=== PATIENT | female | born 1965 | race Asian ===

== ENCOUNTER 2019-02-24 12:56 | Emergency (ER) | payer OTHER, SELFPAY ==
[2019-02-24 13:16] VITALS: BP 133/86; PULSE 119; RESP 36; TEMP 36.9; O2SAT 99; BMI 27.1
[2019-02-24] MEDS: ALBUTEROL/IPRATROPIUM 3 ML AMPUL INH (13:25)
[2019-02-24 13:26] VITALS: PULSE 110; RESP 24
--- NOTE | 2019-02-24 13:36 | DI.RAD.S_ITS ---
PROCEDURE: XR CHEST 1V INDICATIONS: cough, wheeze TECHNIQUE: One view of the chest was acquired. COMPARISON: None. FINDINGS: Surgical changes and devices: None. Lungs and pleura: Lungs are clear. No pleural effusions or pneumothorax. Mediastinum: Mediastinal contours appear normal. Heart size is normal. Bones and chest wall: No suspicious bony lesions. Overlying soft tissues appear unremarkable. IMPRESSION: Negative chest. No acute cardiopulmonary process is evident. Dictated by: Mich Joseph M.D. on 02/24/2019 at 14:03 Approved by: Mich Joseph M.D. on 02/24/2019 at 14:04
[2019-02-24] MEDS: KETOROLAC 60 MG/2 ML VIAL 15 MG IV (13:42)
[2019-02-24] MEDS: SODIUM CHLORIDE 0.9% 1,000 ML 1000 ML IV (13:44)
[2019-02-24 13:48] LABS: Add Manual Diff / Slide Review NO; Basophils Absolute Auto 0 /uL (0-100); Basophils Percent Auto 0.6 % (0-2); Eosinophils Absolute Auto 100 /uL (0-450); Eosinophils Percent Auto 1.8 % (2-4); Hematocrit 36.6 % (36-46); Hemoglobin 12.3 g/dL (12.0-16.0); Lymphocytes Absolute Auto 1100 /uL (1100-4500); Lymphocytes Percent Auto 20.9 % (25-40); Mean Corpuscular HGB Conc 33.5 % (30-36); Mean Corpuscular Hemoglobin 30.8 PG (26-34); Monocytes Absolute Auto 200 /uL (0-900); Monocytes Percent Auto 4.4 % (3-14); Neutrophils Absolute Auto 3900 /uL (1500-7000); Neutrophils Percent Auto 72.3 % (50-75); Platelet Count 249 X10^3/uL (150-400); Red Blood Cell Count 3.98 X10^6/uL (4.0-5.2); Red Cell Distribution Width 14.5 % (11.6-14.8); White Blood Cell Count 5.4 X10^3/uL (4.5-11.0)
[2019-02-24 14:00] VITALS: BP 119/73
[2019-02-24 14:02] LABS: Blood Urea Nitrogen 9 mg/dL (7-17); Calcium 9.3 mg/dL (8.4-10.2); Carbon Dioxide 21 mmol/L (22-32); Chloride 104 mmol/L (98-107); Estimated Glomerular Filt Rate > 60.0 mL/min (>60); Ethanol (ETOH) 78 mg/dL; Glucose 366 mg/dL (70-100); HEMOLYSIS 41 (0-50); Potassium 3.6 mmol/L (3.4-5.1); Sodium 142 mmol/L (137-145)
--- NOTE | 2019-02-24 14:51 | ED.ASTHMA ---
HPI - Asthma General Chief Complaint: Asthma Stated Complaint: shortness of breath Time Seen by Provider: 02/24/19 12:57 Source: patient and EMS Mode of arrival: EMS Limitations: no limitations History of Present Illness HPI Narrative: 53F nonsmoker with history of asthma presents by EMS for evaluation of shortness of breath. Patient had been seen and evaluated by the primary care provider earlier this morning and that head difficulty in breathing that seemed to maybe resolved with bronchodilators. The patient smelled of alcohol and has a history alcohol abuse, poorly controlled diabetes and social troubles at home that make her depressed and occasionally she makes comments and suggestion of thoughts of suicide. For reasons noted above the primary care provider thought it was most appropriate that the patient be seen and evaluated in the emergency department and wrote a letter to EMS stating that she needs to go against her will. On arrival here the patient is alert and oriented, speaking clearly with full capacity. She denies any suicidal or homicidal ideations. MD complaint: asthma attack Onset (ago): hour(s) Severity: moderate Context: none known Associated symptoms: none Treatments Prior to Arrival: inhaled bronchodilator Related Data Current Asthma Therapy: inhaled bronchodilator Home Medications Medication Instructions Recorded Confirmed ustekinumab [Stelara] #0 05/19/17 Previous Rx's Medication Instructions Recorded clobetasol 1 lauren TOPICAL BID #60 gm 08/13/16 esomeprazole magnesium [Nexium] 40 mg PO QDAY #90 cap 09/17/16 lisinopril 20 mg PO QAM #90 tab 09/17/16 loperamide 2 mg PO Q4HP PRN #60 cap 09/17/16 hydroxyzine pamoate [Vistaril] 25 - 50 mg PO Q6HP PRN #90 cap 11/05/16 nicotine (polacrilex) 2 mg PO PRN PRN #30 gum 01/09/17 atorvastatin [Lipitor] 20 mg PO HS #30 tab 01/31/17 clonidine HCl 0.1 mg PO BID #60 tab 04/01/17 insulin glargine [Lantus U-100 65 unit SQ QDAY #2 box 04/10/17 Insulin] metformin [Glucophage] 1,000 mg PO BID #180 tab 04/10/17 promethazine 12.5 mg PO Q6HP PRN #15 tab 07/22/17 zolpidem 5 mg PO HS PRN #90 tab 10/09/17 gabapentin [Neurontin] 300 mg PO TID #90 cap 11/25/17 venlafaxine 50 mg PO BID #60 tab 11/25/17 albuterol sulfate [Ventolin HFA] 1 - 2 puff INH Q4HP PRN #1 ea 10/16/18 albuterol sulfate 2 puff INHALATION Q4H PRN #1 each 02/24/19 ketorolac 10 mg PO Q6H PRN #14 tab 02/24/19 Allergies Allergy/AdvReac Type Severity Reaction Status Date / Time bupropion [From WELLBUTRIN] Allergy Unknown Verified 02/24/19 13:16 fluoxetine [FLUOXETINE] Allergy Unknown Verified 02/24/19 13:16 rosiglitazone Allergy Unknown Verified 02/24/19 13:24 tramadol [TRAMADOL] Allergy Unknown Verified 02/24/19 13:16 Review of Systems Constitutional Denies chills, Denies fever(s), Denies lethargy and Denies weakness Eyes Denies change in vision, Denies eye discharge, Denies irritation and Denies loss of vision ENT Ears, Nose, Mouth, and Throat: Denies change in voice, Denies neck pain and Denies sore throat Cardiovascular Denies chest pain, Denies irregular heart rhythm, Denies lightheadedness, Denies palpitations, Reports dyspnea, Denies dyspnea on exertion and Denies orthopnea Respiratory Reports cough, Reports dyspnea, Denies dyspnea on exertion and Reports wheezing Gastrointestinal Gastrointestinal: Denies abdominal pain, Denies change in bowel habits, Denies diarrhea, Denies nausea and Denies vomiting Genitourinary Denies hematuria, Denies flank pain, Denies urinary incontinence and Denies urinary urgency Musculoskeletal Denies neck pain Integumentary/Breasts Denies pruritus, Denies erythema, Denies rash and Denies wounds Neurologic Denies confusion, Denies loss of vision and Denies weakness Psychiatric Denies anxiety, Denies confusion, Denies depression, Denies homicidal ideation and Denies suicidal ideation Endocrine Denies palpitations Hematologic/Lymphatic Denies easy bruising Allergic/Immunologic Reports wheezing Exam Narrative Exam Narrative: GENERAL: 53-year-old female tearful, obviously anxious and a bit upset HEAD: Atraumatic. Normocephalic. No temporal or scalp tenderness. EYES: Pupils equal round and reactive. Extraocular motions intact. No scleral icterus. No injection or drainage. ENT: Nose without bleeding, purulent drainage or septal hematoma. Throat without erythema, tonsillar hypertrophy or exudate. Uvula midline. Airway patent. NECK: Trachea midline. No JVD or lymphadenopathy. Supple, nontender, no meningeal signs. CARDIOVASCULAR: Regular rate and rhythm without murmurs, gallops, or rubs. RESPIRATORY: Shallow breathing, poor inspiratory effort with prolonged expiratory phase and expiratory wheeze in all lynn GASTROINTESTINAL: Abdomen soft, non-tender, nondistended. No hepato-splenomegaly, or palpable masses. No guarding. EXTREMITIES: No clubbing, cyanosis, or edema. No joint tenderness, effusion, or edema noted. BACK: Nontender without deformity or crepitance. No flank tenderness. NEURO: AOx3. SKIN: No rash or erythema. Initial Vital Signs Initial Vital Signs: Vital Signs Temperature 98.4 F 02/24/19 13:16 Pulse Rate 119 H 02/24/19 13:16 Respiratory Rate 36 H 02/24/19 13:16 Blood Pressure 133/86 02/24/19 13:16 Pulse Oximetry 99 02/24/19 13:16 [facility] Family History (Updated 08/13/16 @ 00:00 by Valeria Ray MD) Grandfather [place] (myocardial infarction) Social History Smoking Status: Current every day smoker Family History Grandfather [place] (myocardial infarction) Social History Smoking Status: Current every day smoker Course Orders Ordered: ED Orders 02/24/19 13:30 Basic Metabolic Panel Stat Complete Blood Count AUTO DIFF Stat Ethanol (ETOH) Stat 02/24/19 13:36 XR chest 1V Stat Discontinued Medications Albuterol/Ipratropium (Duoneb) 3 ml INH NOW ONE Stop: 02/24/19 13:23 Last Admin: 02/24/19 13:25 Dose: 3 ml Sodium Chloride (Normal Saline 0.9%) 1,000 mls @ 1,000 mls/hr IV BOLUS ONE Stop: 02/24/19 14:34 Last Infusion: 02/24/19 14:55 Dose: 0 mls/hr Admin: 02/24/19 13:44 Dose: 1,000 mls/hr Ketorolac Tromethamine (Toradol) 15 mg IV NOW ONE Stop: 02/24/19 13:36 Last Admin: 02/24/19 13:42 Dose: 15 mg Reevaluation(s) Reevaluation #1: Patient shows tremendous improvement after above-stated bronchodilators and fluids. She is ambulating through the department no longer tearful. She speaks clearly with a steady gait. She denies any suicidal or homicidal ideation Vital Signs - 8 hr 02/24/19 13:16 02/24/19 13:26 02/24/19 14:00 Temperature 98.4 F Pulse Rate 119 H 110 H Respiratory Rate 36 H 24 Blood Pressure 133/86 Blood Pressure [Left Arm] 119/73 Pulse Oximetry 99 02/24/19 15:12 Temperature Pulse Rate 75 Respiratory Rate 17 Blood Pressure 117/86 Blood Pressure [Left Arm] Pulse Oximetry 96 MDM - Asthma Lab Data Result diagrams: 02/24/19 13:30 02/24/19 13:30 Lab Results 02/24/19 02/24/19 Range/Units 13:30 13:30 WBC 5.4 (4.5-11.0) X10^3/uL RBC 3.98 L (4.0-5.2) X10^6/uL Hgb 12.3 (12.0-16.0) g/dL Hct 36.6 (36-46) % MCV 92.0 (80-100) fL MCH 30.8 (26-34) PG MCHC 33.5 (30-36) % RDW 14.5 (11.6-14.8) % Plt Count 249 (150-400) X10^3/uL Neut % (Auto) 72.3 (50-75) % Lymph % (Auto) 20.9 L (25-40) % Whiteside % (Auto) 4.4 (3-14) % Eos % (Auto) 1.8 L (2-4) % Baso % (Auto) 0.6 (0-2) % Neut # (Auto) 3900 (9022-9169) /uL Lymph # (Auto) 1100 (3979-1417) /uL Whiteside # (Auto) 200 (0-900) /uL Eos # (Auto) 100 (0-450) /uL Baso # (Auto) 0 (0-100) /uL Sodium 142 (137-145) mmol/L Potassium 3.6 (3.4-5.1) mmol/L Chloride 104 (98-107) mmol/L Carbon Dioxide 21 L (22-32) mmol/L BUN 9 (7-17) mg/dL Creatinine 0.60 (0.52-1.04) mg/dL Estimated GFR > 60.0 (>60) mL/min BUN/Creatinine Ratio 15.0 (6-22) Glucose 366 H (70-100) mg/dL Calcium 9.3 (8.4-10.2) mg/dL Ethyl Alcohol 78 mg/dL Imaging Data Chest x-ray: Radiologist's impression: [address] [address] XRay Report Signed Patient: Ladonna Garcia#: [id number] : 1965Acct:[id number] Age/Sex: 53 / FDate of Service: 02/24/19 Loc: ED Accession Number: [id number] Procedure: XR chest 1V Ordering Provider: Raffi Campbell D.O. PROCEDURE: XR CHEST 1V INDICATIONS: cough, wheeze TECHNIQUE: One view of the chest was acquired. COMPARISON: None. FINDINGS: Surgical changes and devices: None. Lungs and pleura: Lungs are clear. No pleural effusions or pneumothorax. Mediastinum: Mediastinal contours appear normal. Heart size is normal. Bones and chest wall: No suspicious bony lesions. Overlying soft tissues appear unremarkable. IMPRESSION: Negative chest. No acute cardiopulmonary process is evident. Dictated by: Mich Joseph M.D. on 02/24/2019 at 14:03 Approved by: Mich Joseph M.D. on 02/24/2019 at 14:04 Discharge Plan Departure Patient Disposition: Home Clinical Impression: Asthma Qualifiers: Asthma severity: mild Asthma persistence: intermittent Asthma complication type: with acute exacerbation Qualified Code(s): J45.21 - Mild intermittent asthma with (acute) exacerbation Discharge Date/Time: 02/24/19 15:13 Interventions: ED Discharge Assessment Last Done: 02/24/19 15:12 Instructions: DI for Asthma -- Adult Activity Restrictions/Additional Instructions: *You have been diagnosed with [ asthma exacerbation ] *What to do: *Take medications as directed *Follow up with your primary care provider in 2-3 days, call for an appointment. Let them know you were seen in the Emergency Department and that we ask that you be seen in follow up *Return to ER if you should have any new, worsening or concerning symptoms Prescriptions: New albuterol sulfate 90 mcg/actuation aerosol powdr breath activated 2 puff INHALATION Q4H PRN (Reason: shortness of breath or wheezing) Qty: 1 RF: 0 ketorolac 10 mg tablet 10 mg PO Q6H PRN (Reason: pain) Qty: 14 RF: 0 No Action clobetasol 0.05 % ointment 1 lauren Topical BID Qty: 60 RF: 1 lisinopril 20 MG tablet 20 mg PO QAM Qty: 90 RF: 2 esomeprazole magnesium [Nexium] 40 MG capsule,delayed release(DR/EC) 40 mg PO QDAY Qty: 90 RF: 2 loperamide 2 MG capsule 2 mg PO Q4HP PRNQty: 60 RF: 0 hydroxyzine pamoate [Vistaril] 25 MG capsule 25 - 50 mg PO Q6HP PRNQty: 90 RF: 1 nicotine (polacrilex) 2 MG gum 2 mg PO PRN PRNQty: 30 RF: 2 atorvastatin [Lipitor] 20 MG tablet 20 mg PO HS Qty: 30 RF: 2 clonidine HCl 0.1 MG tablet 0.1 mg PO BID Qty: 60 RF: 1 metformin [Glucophage] 500 MG tablet 1,000 mg PO BID Qty: 180 RF: 0 insulin glargine [Lantus U-100 Insulin] 100 UNIT/1 ML solution 65 unit SQ QDAY Qty: 2 RF: 3 ustekinumab [Stelara] 45 MG/0.5 ML solution Qty: 0 RF: 0 promethazine 12.5 MG tablet 12.5 mg PO Q6HP PRNQty: 15 RF: 0 zolpidem 5 MG tablet 5 mg PO HS PRNQty: 90 RF: 0 venlafaxine 50 MG tablet 50 mg PO BID Qty: 60 RF: 0 gabapentin [Neurontin] 300 MG capsule 300 mg PO TID Qty: 90 RF: 0 Ventolin HFA 90 mcg/actuation HFA aerosol inhaler 1 - 2 puff INH Q4HP PRNQty: 1 RF: 0 Referrals: Valeria Ray MD [Primary Care Provider] -
[2019-02-24 15:12] VITALS: BP 117/86; PULSE 75; RESP 17; O2SAT 96
== END 2019-02-24 15:13 | disposition home or self-care (01) ==
PROVIDERS: Emergency Provider Emergency Medicine; Family Provider Family Medicine; PCP Family Medicine
DX: J45.21 Mild intermittent asthma with (acute) exacerbation (principal)
CPT/HCPCS: 36591; 71045; 80048; 80320; 85025; 94640; 96361; 96374; 99283; 99284; J1885

== ENCOUNTER → 2020-12-30 12:16 | Outpatient (CLI) | payer OTHER, SELFPAY ==
[2020-12-30] MEDS: COVID-19 VACC #1, MRNA(MOD) 100 MCG/0.5 ML VIAL IM (12:28)
== END ==
PROVIDERS: Family Provider Family Medicine; Visit Provider Internal Medicine
DX: Z23 Encounter for immunization (principal)
CPT/HCPCS: 0011A; 91301

== ENCOUNTER → 2021-01-27 10:07 | Outpatient (CLI) | payer OTHER, SELFPAY ==
[2021-01-27] MEDS: COVID-19 VACC #2, MRNA(MOD) 100 MCG/0.5 ML VIAL IM (10:15)
== END ==
PROVIDERS: Family Provider Family Medicine; Visit Provider Internal Medicine
DX: Z23 Encounter for immunization (principal)
CPT/HCPCS: 0012A; 91301

== ENCOUNTER 2022-06-27 16:56 | Emergency (ER) | payer OTHER, SELFPAY ==
[2022-06-27] VITALS (7 sets, daily range): BP systolic 142–192; BP diastolic 73–88; PULSE 91–108; RESP 18; TEMP 36.6; O2SAT 99–100; BMI 31.5
--- NOTE | 2022-06-27 18:43 | ED_ITS ---
HPI - Extremity Problem <Jackie Chuy Mendoza FLOOR COVERING PRINTER - Last Filed: 06/27/22 20:10> General Chief complaint: Extremity Problem,Nontraumatic Stated complaint: Osteoarthritis in hip/groin, Pain Time Seen by Provider: 06/27/22 18:38 Mode of arrival: Family Vehicle History of Present Illness HPI Narrative: This is a 56-year-old female with history of diabetes type 2, psoriasis, and hypertension who presents to the emergency department complaining of groin pain on the right side which has been worsening over the last few days. She states that she went to the hospital in [place] had an x-ray of her right hip because this is where it is painful, was told that she has osteoarthritis and was discharged home. She states that her pain has been ongoing, she denies any recent trauma, denies any low back pain, denies recent fever or chills but states that she had COVID 1 month ago. States that she has tested negative since then and does not have any ongoing respiratory symptoms. She denies any recent illness, abdominal pain, dysuria or urinary frequency. States that her pain is sharp and dull, she denies any numbness or tingling, states the pain is shooting in nature from the lateral hip to the medial groin of her right upper leg. She has been taking meloxicam, Vicodin without improvement. She is insulin dependent and also on metformin. Related Data Home Medications Medication Instructions Recorded Confirmed ustekinumab 45 mg/0.5 mL ##0 05/19/17 subcutaneous solution (Stelara) Previous Rx's Medication Instructions Recorded clobetasol 0.05 % topical ointment 1 lauren topical BID ##60 08/13/16 esomeprazole magnesium 40 mg 40 mg PO QDAY #90 caps 09/17/16 capsule,delayed release (Nexium) lisinopril 20 mg tablet 20 mg PO QAM #90 tabs 09/17/16 loperamide 2 mg capsule 2 mg PO Q4HP PRN #60 caps 09/17/16 hydroxyzine pamoate 25 mg capsule 25 - 50 mg PO Q6HP PRN #90 caps 11/05/16 (Vistaril) nicotine (polacrilex) 2 mg gum 2 mg PO PRN PRN ##30 01/09/17 atorvastatin 20 mg tablet (Lipitor) 20 mg PO HS #30 tabs 01/31/17 clonidine HCl 0.1 mg tablet 0.1 mg PO BID #60 tabs 04/01/17 insulin glargine 100 unit/mL 65 unit (0.65 mL) SQ QDAY ##2 04/10/17 subcutaneous solution (Lantus U-100 Insulin) metformin 500 mg tablet 1,000 mg PO BID #180 tabs 04/10/17 (Glucophage) promethazine 12.5 mg tablet 12.5 mg PO Q6HP PRN #15 tabs 07/22/17 zolpidem 5 mg tablet 5 mg PO HS PRN #90 tabs 10/09/17 gabapentin 300 mg capsule 300 mg PO TID #90 caps 11/25/17 (Neurontin) venlafaxine 50 mg tablet 50 mg PO BID #60 tabs 11/25/17 albuterol sulfate 90 mcg/actuation 1 - 2 puff INH Q4HP PRN #1 ea 10/16/18 aerosol inhaler (Ventolin HFA) albuterol sulfate 90 mcg/actuation 2 puff inhalation Q4H PRN 02/24/19 breath activated powder inhaler shortness of breath or wheezing #1 ea ketorolac 10 mg tablet 10 mg PO Q6H PRN pain #14 tabs 02/24/19 hydrocodone 5 mg-acetaminophen 325 1 tab PO BID PRN pain #14 tabs 06/27/22 mg tablet ketorolac 10 mg tablet 10 mg PO TID PRN pain 5 days #14 06/27/22 tabs lidocaine 5 % topical patch 1 patch topical DAILY PRN pain #15 06/27/22 (Lidoderm) ea methocarbamol 500 mg tablet 500 mg PO TID PRN as needed for 06/27/22 muscle spasm #20 tabs prednisone 20 mg tablet 40 mg PO DAILY 5 days #10 tabs 06/27/22 Allergies Allergy/AdvReac Type Severity Reaction Status Date / Time bupropion [From WELLBUTRIN] Allergy Unknown Verified 06/27/22 17:17 fluoxetine [FLUOXETINE] Allergy Unknown Verified 06/27/22 17:17 rosiglitazone Allergy Unknown Verified 06/27/22 17:17 tramadol [TRAMADOL] Allergy Unknown Verified 06/27/22 17:17 Review of Systems <FRANCISCO Nguyen - Last Filed: 06/27/22 20:10> Review of Systems Narrative: Review of systems is negative for acute abnormalities unless otherwise noted in HPI Patient History <FRANCISCO Nguyen - Last Filed: 06/27/22 20:10> Family History Grandfather [place] (myocardial infarction) Social History Smoking Status: Former smoker Smoking Status: Former smoker alcohol intake frequency: other Substance Use Type: does not use Exam <FRANCISCO Nguyen - Last Filed: 06/27/22 20:10> Narrative Exam Narrative: Reviewed vitals signs and nursing notes. General: cooperative, comfortable, in no acute distress, well groomed HEENT: symmetrical facial expressions, moist mucous membranes Cardiovascular: regular rate and rhythm, no peripheral edema, warm extremities Respiratory: normal effort, able to speak in complete sentences, without whee zing, stridor, or abnormal breath sounds. No retractions or tachypnea. GI: abdomen soft, nontender to palpation, nondistended, without masses, rebound tenderness or exquisite tenderness with exam. MSK: moves all extremities, neurovascularly intact, no weakness, normal tone, no right hip pain with axial load, external rotation is nontender, left leg lift elicits some low back pain, right leg lift does not elicit low back pain, without sensation changes, able to flex and extend right hip, knee without deficit or severe pain. Skin: brisk capillary refill, without pallor or erythema Neuro: normal speech and cognition, A&O x3, ambulatory, clear speech Psych: mental status is grossly normal, congruent mood, normal affect, pleasant and cooperative Initial Vital Signs Initial Vital Signs: Vital Signs Temperature 98 F 06/27/22 17:13 Pulse Rate 108 H 06/27/22 17:13 Respiratory Rate 18 06/27/22 17:13 Blood Pressure 190/88 H 06/27/22 17:13 Pulse Oximetry 100 06/27/22 17:13 Oxygen Delivery Method 06/27/22 17:13 <Rikki Adams MD - Last Filed: 06/27/22 22:26> Initial Vital Signs Initial Vital Signs: Vital Signs Temperature 98 F 06/27/22 17:13 Pulse Rate 108 H 10/19/22 17:13 Respiratory Rate 18 06/27/22 17:13 Blood Pressure 190/88 H 06/27/22 17:13 Pulse Oximetry 100 06/27/22 17:13 Oxygen Delivery Method 06/27/22 17:13 Course <FRANCISCO Nguyen - Last Filed: 06/27/22 20:10> Orders Ordered: ED Orders 06/27/22 18:53 XR lumbar spine 2-3V Stat 06/27/22 20:06 UA Complete [Urinalysis and Microscopic] Stat Discontinued Medications Hydrocodone Bitart/Acetaminophen (Hydrocodone/Acet 5/325 Tablet) 1 tab PO NOW ONE Stop: 06/27/22 18:54 Last Admin: 06/27/22 19:33 Dose: 1 tab Documented By: SHAMIKA Hydrocodone Bitart/Acetaminophen (Hydrocodone/Acet 5/325 Prepack) 1 bottle MISC SEEINSTR ONE Stop: 06/27/22 20:09 Last Admin: 06/27/22 20:23 Dose: 1 bottle Documented By: SHAMIKA Ketorolac Tromethamine (Ketorolac 30 Mg/Ml Vial) 15 mg IM NOW ONE Stop: 06/27/22 18:54 Last Admin: 06/27/22 19:32 Dose: 15 mg Documented By: SHAMIKA Lidocaine (Lidocaine Patch 1 Each Adh..Patch) 1 each TOP NOW ONE Stop: 06/27/22 18:54 Last Admin: 06/27/22 19:33 Dose: 1 each Documented By: SHAMIKA Methocarbamol (Methocarbamol 500 Mg Tablet) 500 mg PO NOW ONE Stop: 06/27/22 18:54 Last Admin: 06/27/22 19:32 Dose: 500 mg Documented By: SHAMIKA Prednisone (Prednisone 20 Mg Tablet) 40 mg PO NOW ONE Stop: 06/27/22 19:17 Last Admin: 06/27/22 19:31 Dose: 40 mg Documented By: SHAMIKA Vital Signs Vital signs: Vital Signs - 8 hr 06/27/22 17:13 06/27/22 18:24 06/27/22 18:25 Temperature 98 F Pulse Rate 108 H 102 H 103 H Respiratory Rate 18 Blood Pressure 190/88 H Pulse Oximetry 100 99 100 Oxygen Delivery Method Room Air 06/27/22 18:25 06/27/22 18:36 06/27/22 18:38 Temperature Pulse Rate 101 H Respiratory Rate Blood Pressure 192/87 H 142/73 H Pulse Oximetry 100 Oxygen Delivery Method 06/27/22 18:38 06/27/22 19:06 06/27/22 19:26 Temperature Pulse Rate 99 H 101 H 91 H Respiratory Rate Blood Pressure Pulse Oximetry 100 99 100 Oxygen Delivery Method 06/27/22 19:26 Temperature Pulse Rate Respiratory Rate Blood Pressure 172/81 H Pulse Oximetry Oxygen Delivery Method <Rikki Adams MD - Last Filed: 06/27/22 22:26> Orders Ordered: ED Orders 06/27/22 18:53 XR lumbar spine 2-3V Stat 06/27/22 20:06 UA Complete [Urinalysis and Microscopic] Stat Discontinued Medications Hydrocodone Bitart/Acetaminophen (Hydrocodone/Acet 5/325 Tablet) 1 tab PO NOW ONE Stop: 06/27/22 18:54 Last Admin: 06/27/22 19:33 Dose: 1 tab Documented By: SHAMIKA Hydrocodone Bitart/Acetaminophen (Hydrocodone/Acet 5/325 Prepack) 1 bottle MISC SEEINSTR ONE Stop: 06/27/22 20:09 Last Admin: 06/27/22 20:23 Dose: 1 bottle Documented By: SHAMIKA Ketorolac Tromethamine (Ketorolac 30 Mg/Ml Vial) 15 mg IM NOW ONE Stop: 06/27/22 18:54 Last Admin: 06/27/22 19:32 Dose: 15 mg Documented By: SHAMIKA Lidocaine (Lidocaine Patch 1 Each Adh..Patch) 1 each TOP NOW ONE Stop: 06/27/22 18:54 Last Admin: 06/27/22 19:33 Dose: 1 each Documented By: SHAMIKA Methocarbamol (Methocarbamol 500 Mg Tablet) 500 mg PO NOW ONE Stop: 06/27/22 18:54 Last Admin: 06/27/22 19:32 Dose: 500 mg Documented By: SHAMIKA Prednisone (Prednisone 20 Mg Tablet) 40 mg PO NOW ONE Stop: 06/27/22 19:17 Last Admin: 06/27/22 19:31 Dose: 40 mg Documented By: SHAMIKA Vital Signs Vital signs: Vital Signs - 8 hr 06/27/22 17:13 06/27/22 18:24 06/27/22 18:25 Temperature 98 F Pulse Rate 108 H 102 H 103 H Respiratory Rate 18 Blood Pressure 190/88 H Pulse Oximetry 100 99 100 Oxygen Delivery Method Room Air 06/27/22 18:25 06/27/22 18:36 06/27/22 18:38 Temperature Pulse Rate 101 H Respiratory Rate Blood Pressure 192/87 H 142/73 H Pulse Oximetry 100 Oxygen Delivery Method 06/27/22 18:38 06/27/22 19:06 06/27/22 19:26 Temperature Pulse Rate 99 H 101 H 91 H Respiratory Rate Blood Pressure Pulse Oximetry 100 99 100 Oxygen Delivery Method 06/27/22 19:26 Temperature Pulse Rate Respiratory Rate Blood Pressure 172/81 H Pulse Oximetry Oxygen Delivery Method MDM - Extremity (Nontraumatic) <Jackie Mendoza, [facility] - Last Filed: 06/27/22 20:10> Lab Data Labs: Lab Results 06/27/22 Range/Units 20:06 Urine Color Yellow Urine Appearance Clear Urine pH 6.5 (4.5-8.0) Ur Specific Ronks <=1.005 (1.000-1.035) Urine Protein Trace H (Negative) Urine Glucose (UA) 1+ H (Negative) g/dL Urine Ketones Negative (NEGATIVE) Urine Occult Blood Trace-intact (Negative) Urine Nitrate Negative (Negative) Urine Bilirubin Negative (NEGATIVE) Urine Urobilinogen 0.2 (0.2) E.U./dL Ur Leukocyte Esterase Negative (NEGATIVE) Urine RBC 0-1/hpf (0-5/HPF) Urine WBC None seen (0-5/HPF) Amorphous Sediment 1+ Urine Bacteria None seen (None) Ur Culture Indicated? Cult not indicated Urine Dip Bedside Urine Glucose 250 mg/dl Bedside Urine Bilirubin - Negative Bedside Urine Ketone - Negative Urine Specific Ronks 1.010 Bedside Urine Occult Blood +/- Bedside Urine pH 6.0 Bedside Urine Protein - Negative Bedside Urine Urobilinogen - Negative Bedside Urine Nitrite - Negative Bedside Urine Leukocytes - Negative Esterase Imaging Data Lumbar spine xr: Radiologist's Impression: PROCEDURE:? XR LUMBAR SPINE 2-3V ? INDICATIONS:? groin pain, pain with bending, eval L1 region ? TECHNIQUE:? 3 views of the lumbar spine were acquired.? ? COMPARISON:? None. ? FINDINGS:? ? Bones:? 5 [id number] vertebrae are present.? There is normal bony alignment.? No vertebral body compression fractures.? No suspicious bony lesions.? Mild space narrowing and degenerative arthropathy in the lower spine ? Soft tissues:? Overlying bowel gas pattern is normal.? No suspicious soft tissue calcifications.? ? ? IMPRESSION:? Mild degenerative disc disease and arthropathy in lumbar spine.? No convincing compression fracture.? Clinical concern persists consider MR evaluation ? ? ? Approved by: Jovan Betancur M.D. on 06/27/2022 at 18:49? MDM Narrative Medical decision making narrative: This is a 56-year-old female with history of diabetes, was recently started on insulin which she has not filled the prescription of yet and will be doing so tomorrow who presents to the emergency department complaining of right groin pain which she describes as shooting and worsening over the last week. She was seen in [facility] at the hospital and was told she has osteoarthritis of her right hip and was to take meloxicam for her pain. Today she has right groin pain without numbness, states it is exacerbated with bending over, leg lift, and I presume this is most likely lumbar radiculopathy. X-ray of her lumbar spine shows mild degenerative disc disease and arthropathy of the lumbar spine, no convincing compression fracture visualized on x-ray. Patient has been on gabapentin, Vicodin, and meloxicam without improvement of her pain. Discussed the next step is typically steroids, lidocaine patches, muscle relaxers to see if this helps calm down some inflammation but a discussed with her that this will increase her glucose and she has a sliding scale which she can follow. Patient denies any weakness, incontinence, numbness or tingling She is without trauma, and is afebrile. Given history and exam, suspect likely musculoskeletal etiology, they are nontoxic appearing with no overt risk factors for epidural hematoma or abscess. No overt evidence of critical cord compression and has a nonfocal near exam. Neurovascularly intact distally, no evidence of infection, peritoneal signs, hypertensive crisis, or abdominal pain with low suspicion for AAA. No weakness, incontinence, neurovascular or sensation changes, no concerning findings for caudal equina syndrome, lumbar fracture, without paresthesia, neuropathic pain, meningeal signs and fever. This could be a herniated disk, paraspinal or other muscle strain, ligamental injury, arthritic, nephrolithiasis/pyelonephritis, epidural abscess, chronic pain, and other diagnosis? considered less likely. I think this is most likely a herniated disc with radiculopathy to her right groin. UA obtained and Patient's primary care provider is nurse practitioner Pete who is also in [facility]. Patient states that she has a orthopedic referral coming from her this week. She will follow-up accordingly, she was given a copy of her x-ray today, and understands to call [facility] for follow-up if she is unable to get an orthopedics. Patient is appropriate and amenable to discharge home. Vital signs are stable on repeat examination is unremarkable. Patient has been informed of results. Patient has been given strict return to ER precautions for any new or worsening symptoms. Patient understands to follow up closely with outpatient providers as instructed. Patient understands plan and agrees to discharge home. All questions and concerns answered at this time. <Rikki Adams MD - Last Filed: 06/27/22 22:26> Lab Data Labs: Lab Results 06/27/22 Range/Units 20:06 Urine Color Yellow Urine Appearance Clear Urine pH 6.5 (4.5-8.0) Ur Specific Ronks <=1.005 (1.000-1.035) Urine Protein Trace H (Negative) Urine Glucose (UA) 1+ H (Negative) g/dL Urine Ketones Negative (NEGATIVE) Urine Occult Blood Trace-intact (Negative) Urine Nitrate Negative (Negative) Urine Bilirubin Negative (NEGATIVE) Urine Urobilinogen 0.2 (0.2) E.U./dL Ur Leukocyte Esterase Negative (NEGATIVE) Urine RBC 0-1/hpf (0-5/HPF) Urine WBC None seen (0-5/HPF) Amorphous Sediment 1+ Urine Bacteria None seen (None) Ur Culture Indicated? Cult not indicated Urine Dip Bedside Urine Glucose 250 mg/dl Bedside Urine Bilirubin - Negative Bedside Urine Ketone - Negative Urine Specific Ronks 1.010 Bedside Urine Occult Blood +/- Bedside Urine pH 6.0 Bedside Urine Protein - Negative Bedside Urine Urobilinogen - Negative Bedside Urine Nitrite - Negative Bedside Urine Leukocytes - Negative Esterase Discharge Plan Departure Patient Disposition: Home Clinical Impression: Acute lumbar radiculopathy Diabetes mellitus Qualifiers: Diabetes mellitus type: type 2 Diabetes mellitus intermission coordinator insulin use: unspecified intermission coordinator insulin use status Diabetes mellitus complication status: without complication Qualified Code(s): E11.9 - Type 2 diabetes mellitus without complications Instructions: Lumbar Radiculopathy, DI for Lumbar Radiculopathy Activity Restrictions/Additional Instructions: *You have been diagnosed with what sounds like radiculopathy which is nerve pain in your right groin which typically comes from the upper lumbar spine near L1. Your x-ray Since you have been on medications without improvement, steroids are the next step, please take this dose of prednisone for the next 5 days, you will likely need to increase your insulin coverage to accommodate for your higher blood sugars. Please have a strict diet while you are taking the steroid as it will already cause your blood sugar to go up. Stay hydrated, this can help dilute hyperglycemia. Thank you for coming in for evaluation, please call and schedule an appointment at [facility] or at orthopedic provider in your you. Your lumbar spine shows that you have degenerative disc disease which means wear and tear/arthritis of your lumbar spine, no compression fracture was visible but narrowing of the space between your vertebrae can cause nerve pain which sounds a message to your right groin which I think is what is going on. Please follow- up with your primary doctor about your referral to Orthopedics. If this takes a long time, please call [facility] and set up an appointment. I hope you start feeling better soon. Please take this steroid for the next 5 days, muscle relaxers as needed for muscle spasms, apply lidocaine patches to your low back, and use Toradol instead of meloxicam as needed for pain. You may take Vicodin for severe pain, consider a stool softener like MiraLax if taking constipating medications. *What to do: *Please continue to take your regular medications as directed. [x ] New medication prescriptions sent to your pharmacy: [[facility] [place] ] [ ] New medication written as a paper prescription [ ] No new medications given *Please follow up with your primary care provider in 2-3 days, call for an appointment. Let them know you were seen in the Emergency Department and that we asked that you be seen for follow-up. We will electronically transmit a record of today's note if your PCP is in our system *If you do not have a primary care provider please contact [phone] to establish care with one of the [facility] primary care providers. *Return to Emergency Department if you should have any new, worsening, or concerning symptoms, such as [fever greater than 101F, chills, worsening pain, persistent vomiting or other bothersome symptoms]. Prescriptions: New ketorolac 10 mg tablet 10 mg PO TID PRN (Reason: pain) 5 Days Qty: 14 0RF methocarbamol 500 mg tablet 500 mg PO TID PRN (Reason: as needed for muscle spasm) Qty: 20 0RF prednisone 20 mg tablet 40 mg PO DAILY 5 Days Qty: 10 0RF lidocaine [Lidoderm] 5 % adhesive patch,medicated 1 patch topical DAILY PRN (Reason: pain) Qty: 15 0RF Rx Instructions: apply to low back as needed hydrocodone-acetaminophen 5-325 mg tablet 1 tab PO BID PRN (Reason: pain) Qty: 14 0RF No Action clobetasol 0.05 % ointment 1 laurne Topical BID Qty: 60 1RF lisinopril 20 MG tablet 20 mg PO QAM Qty: 90 2RF esomeprazole magnesium [Nexium] 40 MG capsule,delayed release(DR/EC) 40 mg PO QDAY Qty: 90 2RF loperamide 2 MG capsule 2 mg PO Q4HP PRNQty: 60 0RF hydroxyzine pamoate [Vistaril] 25 MG capsule 25 - 50 mg PO Q6HP PRNQty: 90 1RF nicotine (polacrilex) 2 MG gum 2 mg PO PRN PRNQty: 30 2RF atorvastatin [Lipitor] 20 MG tablet 20 mg PO HS Qty: 30 2RF clonidine HCl 0.1 MG tablet 0.1 mg PO BID Qty: 60 1RF metformin [Glucophage] 500 MG tablet 1,000 mg PO BID Qty: 180 0RF insulin glargine [Lantus U-100 Insulin] 100 UNIT/1 ML solution 65 unit SQ QDAY Qty: 2 3RF ustekinumab [Stelara] 45 MG/0.5 ML solution Qty: 0 promethazine 12.5 MG tablet 12.5 mg PO Q6HP PRNQty: 15 0RF zolpidem 5 MG tablet 5 mg PO HS PRNQty: 90 0RF venlafaxine 50 MG tablet 50 mg PO BID Qty: 60 0RF gabapentin [Neurontin] 300 MG capsule 300 mg PO TID Qty: 90 0RF Ventolin HFA 90 mcg/actuation HFA aerosol inhaler 1 - 2 puff INH Q4HP PRNQty: 1 0RF albuterol sulfate 90 mcg/actuation aerosol powdr breath activated 2 puff INHALATION Q4H PRN (Reason: shortness of breath or wheezing) Qty: 1 0RF Rx Instructions: administer with spacer ketorolac 10 mg tablet 10 mg PO Q6H PRN (Reason: pain) Qty: 14 0RF Referrals: [facility] [Provider Group] Babs Freeman ARNP [Non-Staff] - Visit Report Forms: Patient Portal/API <Rikki Adams MD - Last Filed: 06/27/22 22:26> Cosign ED Attending Cosignature Attestation: I was immediately available in the department for consultation. ?This documentation has been reviewed and I agree with assessment and plan. Supervised by Rikki Adams MD
--- NOTE | 2022-06-27 18:53 | DI.RAD.S_ITS ---
PROCEDURE: XR LUMBAR SPINE 2-3V INDICATIONS: groin pain, pain with bending, eval L1 region TECHNIQUE: 3 views of the lumbar spine were acquired. COMPARISON: None. FINDINGS: Bones: 5 [id number] vertebrae are present. There is normal bony alignment. No vertebral body compression fractures. No suspicious bony lesions. Mild space narrowing and degenerative arthropathy in the lower spine Soft tissues: Overlying bowel gas pattern is normal. No suspicious soft tissue calcifications. IMPRESSION: Mild degenerative disc disease and arthropathy in lumbar spine. No convincing compression fracture. Clinical concern persists consider MR evaluation Approved by: Jovan Betancur M.D. on 06/27/2022 at 18:49
--- NOTE | 2022-06-27 19:15 | PC.NURSE ---
Report received - assumed care of pt at this time
--- NOTE | 2022-06-27 19:20 | PC.NURSE ---
In to medicate pt - VS obtained - pt aware of the need to provide a urine specimen - unable at this time - will inform RN when able
[2022-06-27] MEDS: predniSONE 20 MG TABLET 40 MG PO (19:31)
[2022-06-27] MEDS: methocarbamoL 500 MG TABLET PO (19:32)
[2022-06-27] MEDS: KETOROLAC 30 MG/ML VIAL 15 MG IM (19:32)
[2022-06-27] MEDS: LIDOCAINE PATCH 1 EACH ADH..PATCH TOP (19:33)
[2022-06-27] MEDS: HYDROCODONE/ACET 5/325 TABLET 1 TAB PO (19:33)
--- NOTE | 2022-06-27 19:50 | PC.NURSE ---
Provider at bedside
--- NOTE | 2022-06-27 20:00 | PC.NURSE ---
Ambulatory to the bathroom - steady gait - clean catch UA collected
[2022-06-27 20:14] LABS: Appearance Urine UA CLEAR; Bilirubin Urine UA NEGATIVE (NEGATIVE); Color Urine UA YELLOW; Glucose Urine UA 1+ g/dL (Negative); Ketones Urine UA NEGATIVE (NEGATIVE); Leukocyte Esterase Urine UA NEGATIVE (NEGATIVE); Nitrite Urine UA NEGATIVE (Negative); Occult Blood Urine UA TRACE-INTACT (Negative); Protein Urine UA TRACE (Negative); Specific Gravity Urine UA <=1.005 (1.000-1.035); Urobilinogen Urine UA 0.2 E.U./dL (0.2)
[2022-06-27 20:15] LABS: pH Urine UA 6.5 (4.5-8.0)
[2022-06-27 20:21] LABS: Amorphous Sediment Urine 1+; Bacteria Urine None Seen; Culture Indicated Urine Cult Not Indicated; RBC Urine 0-1/HPF (0-5/HPF); WBC Urine None Seen (0-5/HPF)
[2022-06-27] MEDS: HYDROCODONE/ACET 5/325 PREPACK 1 BOTTLE MISC (20:23)
== END 2022-06-27 20:38 | disposition home or self-care (01) ==
PROVIDERS: Emergency Provider Nurse Practitioner Critical Care Medicine; Family Provider Family Medicine
DX: M54.16 Radiculopathy, lumbar region (principal); E11.8 Type 2 diabetes mellitus with unspecified complications; Z79.4 Long term (current) use of insulin
CPT/HCPCS: 72100; 81001; 81003; 96372; 99283; 99284; J1885

== ENCOUNTER 2022-07-09 19:09 | Emergency (ER) | payer OTHER, SELFPAY ==
[2022-07-09 19:14] VITALS: BP 155/73; PULSE 92; RESP 22; TEMP 36.4; O2SAT 100
[2022-07-09 23:40] VITALS: BP 137/74; PULSE 84; O2SAT 100
--- NOTE | 2022-07-09 23:59 | ED_ITS ---
HPI - Back Pain/Injury General Chief Complaint: Back Pain/Injury Stated Complaint: Lower back pain, Shooting down to groin and leg Time Seen by Provider: 07/09/22 23:29 Source: patient History of Present Illness HPI Narrative: Patient is a 56-year-old female history of diabetes with diabetic neuropathy chronic back pain presenting today with ongoing back pain radiating down her right leg and into her groin. This is similar to when she was seen and evaluated here on June 27. She says that she is taking gabapentin for neuropathy. She denies any changes in bowel or bladder habits. No fever chills. She ran out of her medication. She has appointment with Orthopedics on July 23. She states only comfortable position is flat. Related Data Home Medications Medication Instructions Recorded Confirmed ustekinumab 45 mg/0.5 mL ##0 05/19/17 subcutaneous solution (Stelara) Previous Rx's Medication Instructions Recorded clobetasol 0.05 % topical ointment 1 lauren topical BID ##60 08/13/16 esomeprazole magnesium 40 mg 40 mg PO QDAY #90 caps 09/17/16 capsule,delayed release (Nexium) lisinopril 20 mg tablet 20 mg PO QAM #90 tabs 09/17/16 loperamide 2 mg capsule 2 mg PO Q4HP PRN #60 caps 09/17/16 hydroxyzine pamoate 25 mg capsule 25 - 50 mg PO Q6HP PRN #90 caps 11/05/16 (Vistaril) nicotine (polacrilex) 2 mg gum 2 mg PO PRN PRN ##30 01/09/17 atorvastatin 20 mg tablet (Lipitor) 20 mg PO HS #30 tabs 01/31/17 clonidine HCl 0.1 mg tablet 0.1 mg PO BID #60 tabs 04/01/17 insulin glargine 100 unit/mL 65 unit (0.65 mL) SQ QDAY ##2 04/10/17 subcutaneous solution (Lantus U-100 Insulin) metformin 500 mg tablet 1,000 mg PO BID #180 tabs 04/10/17 (Glucophage) promethazine 12.5 mg tablet 12.5 mg PO Q6HP PRN #15 tabs 07/22/17 zolpidem 5 mg tablet 5 mg PO HS PRN #90 tabs 10/09/17 gabapentin 300 mg capsule 300 mg PO TID #90 caps 11/25/17 (Neurontin) venlafaxine 50 mg tablet 50 mg PO BID #60 tabs 11/25/17 albuterol sulfate 90 mcg/actuation 1 - 2 puff INH Q4HP PRN #1 ea 10/16/18 aerosol inhaler (Ventolin HFA) albuterol sulfate 90 mcg/actuation 2 puff inhalation Q4H PRN 02/24/19 breath activated powder inhaler shortness of breath or wheezing #1 ea ketorolac 10 mg tablet 10 mg PO Q6H PRN pain #14 tabs 02/24/19 hydrocodone 5 mg-acetaminophen 325 1 tab PO BID PRN pain #14 tabs 06/27/22 mg tablet lidocaine 5 % topical patch 1 patch topical DAILY PRN pain #15 06/27/22 (Lidoderm) ea methocarbamol 500 mg tablet 500 mg PO TID PRN as needed for 06/27/22 muscle spasm #20 tabs hydrocodone 5 mg-acetaminophen 325 1 tab PO Q6H PRN pain #10 tabs 07/10/22 mg tablet methocarbamol 750 mg tablet 1,500 mg PO Q8H PRN muscle spasm 07/10/22 #20 tabs Allergies Allergy/AdvReac Type Severity Reaction Status Date / Time bupropion [From WELLBUTRIN] Allergy Unknown Verified 06/27/22 17:17 fluoxetine [FLUOXETINE] Allergy Unknown Verified 06/27/22 17:17 rosiglitazone Allergy Unknown Verified 06/27/22 17:17 tramadol [TRAMADOL] Allergy Unknown Verified 06/27/22 17:17 Review of Systems Review of Systems Narrative: GENERAL: Denies chills, fatigue, malaise, fever, sweats, travel HEENT: Denies sinus pain, ear pain, sore throat, difficulty swallowing, neck pain RESPIRATORY: Denies dyspnea, cough, wheezing, hemoptysis, sputum. CARDIOVASCULAR: Denies chest pain, palpitations, orthopnea, edema GASTROINTESTINAL: Denies nausea, vomiting, abdominal pain, diarrhea, constipation, melena. : Denies dysuria, frequency, incontinence, hematuria, urinary retention, flank pain. MUSCULOSKELETAL: See HPI SKIN: No rash, no erythema, no pruritus NEUROLOGIC: Denies weakness, dizziness, headache, numbness, change in speech, confusion PSYCHIATRIC: No concerning psychosocial issues. 12 point review of systems is negative except for those stated above and HPI Patient History Family History Grandfather [place] (myocardial infarction) Social History Smoking Status: Former smoker Smoking Status: Former smoker alcohol intake frequency: other Substance Use Type: does not use Exam Initial Vital Signs Initial Vital Signs: Vital Signs Temperature 97.6 F 07/09/22 19:14 Pulse Rate 92 H 07/09/22 19:14 Respiratory Rate 22 07/09/22 19:14 Blood Pressure 155/73 H 07/09/22 19:14 Pulse Oximetry 100 07/09/22 19:14 Oxygen Delivery Method 07/09/22 19:14 GENERAL: Alert pleasant 56-year-old female lying and in no acute distress. HEENT: Head atraumatic,EOMI, pupils reactive, face symmetric, moist mucous membranes CARDIOVASCULAR: Regular rate and rhythm without murmurs, rubs or gallops. RESPIRATORY: Breath sounds equal bilaterally, no wheezes rales or rhonchi. ABDOMEN: Soft, nontender. Normoactive bowel sounds all 4 quadrants. No guarding or rebound. BACK: No vertebral tenderness tender right lumbar pain EXTREMITIES: Normal range of motion, no clubbing or edema. Neurovascularly intact NEUROLOGICAL: Alert and oriented x4.Normal gait and speech. SKIN: Warm, dry, no laceration, no petechiae, no rashes or lesions. Course Orders Ordered: ED Orders 07/09/22 23:37 EKG-12 Lead Routine Discontinued Medications Hydrocodone Bitart/Acetaminophen (Hydrocodone/Acet 5/325 Prepack) 1 bottle MISC SEEINSTR ONE Stop: 07/10/22 00:34 Last Admin: 07/10/22 00:48 Dose: 1 bottle Documented By: CAMI Diazepam (Diazepam 5 Mg Tablet) 5 mg PO NOW ONE Stop: 07/10/22 00:10 Last Admin: 07/10/22 00:16 Dose: 5 mg Documented By: MEGAN Ketorolac Tromethamine (Ketorolac 30 Mg/Ml Vial) 30 mg IM NOW ONE Stop: 07/10/22 00:10 Last Admin: 07/10/22 00:16 Dose: 30 mg Documented By: MEGAN Vital Signs Vital signs: Vital Signs - 8 hr 07/09/22 23:40 07/09/22 23:40 07/10/22 00:00 Pulse Rate 84 Respiratory Rate Blood Pressure 137/74 121/64 Pulse Oximetry 100 Oxygen Delivery Method 07/10/22 00:00 07/10/22 01:40 Pulse Rate 84 91 H Respiratory Rate 18 Blood Pressure 127/64 Pulse Oximetry 100 100 Oxygen Delivery Method Room Air MDM - Back Pain/Injury MDM Narrative Medical decision making narrative: Patient has chronic ongoing back pain without signs of cauda equina. She has appointment with orthopedic in couple of weeks. Needing pain medication. Will give her higher dose methocarbamol and hydrocodone. Discharge Plan Departure Patient Disposition: Home Clinical Impression: Acute back pain with sciatica Instructions: DI for Back Pain With Sciatica Activity Restrictions/Additional Instructions: *You have been diagnosed with back pain with sciatic *What to do: At this time recommend light activity light stretching. *Continue to take medications as directed --> SENT TO [facility] 1 tablet every 6 hours if needed for severe pain Methocarbamol 1500 mg every 8 hours Ibuprofen 600 mg every 6 hours if needed for [id number] pain *Follow up with your primary care provider in 2-3 days or call [phone] *Return to ER if you should have loss of bowel or bladder, increasing pain, or any new, worsening or concerning symptoms CONTROLLED SUBSTANCE DISCHARGE (Narcotoic/benzodiazepine/Flexeril/Phenergan) 1. You have been prescribed narcotic medications, it does have acetaminophen/Tylenol/paracetamol in it, DO NOT TAKE MORE THAN 4,00mg in 24 hours of Tylenol. TRAMADOL DOES NOT CONTAIN TYLENOL 2. Please understand that we cannot provide further refills of narcotics, benzodiazepines or controlled substances through the ED and her pain management will need to be through your provider. 3. While on these medications you cannot drive or operate heavy machinery. 4. You cannot sign legal documents or perform any duties such as this. 5. As long as you're taking opiate pain medications he should also be taking a stool softener such as Colace, Dulcolax, MiraLAX or prune juice, to help avoid constipation. Prescriptions: New hydrocodone-acetaminophen 5-325 mg tablet 1 tab PO Q6H PRN (Reason: pain) Qty: 10 0RF methocarbamol 750 mg tablet 1,500 mg PO Q8H PRN (Reason: muscle spasm) Qty: 20 0RF No Action clobetasol 0.05 % ointment 1 lauren Topical BID Qty: 60 1RF lisinopril 20 MG tablet 20 mg PO QAM Qty: 90 2RF esomeprazole magnesium [Nexium] 40 MG capsule,delayed release(DR/EC) 40 mg PO QDAY Qty: 90 2RF loperamide 2 MG capsule 2 mg PO Q4HP PRNQty: 60 0RF hydroxyzine pamoate [Vistaril] 25 MG capsule 25 - 50 mg PO Q6HP PRNQty: 90 1RF nicotine (polacrilex) 2 MG gum 2 mg PO PRN PRNQty: 30 2RF atorvastatin [Lipitor] 20 MG tablet 20 mg PO HS Qty: 30 2RF clonidine HCl 0.1 MG tablet 0.1 mg PO BID Qty: 60 1RF metformin [Glucophage] 500 MG tablet 1,000 mg PO BID Qty: 180 0RF insulin glargine [Lantus U-100 Insulin] 100 UNIT/1 ML solution 65 unit SQ QDAY Qty: 2 3RF ustekinumab [Stelara] 45 MG/0.5 ML solution Qty: 0 promethazine 12.5 MG tablet 12.5 mg PO Q6HP PRNQty: 15 0RF zolpidem 5 MG tablet 5 mg PO HS PRNQty: 90 0RF venlafaxine 50 MG tablet 50 mg PO BID Qty: 60 0RF gabapentin [Neurontin] 300 MG capsule 300 mg PO TID Qty: 90 0RF Ventolin HFA 90 mcg/actuation HFA aerosol inhaler 1 - 2 puff INH Q4HP PRNQty: 1 0RF albuterol sulfate 90 mcg/actuation aerosol powdr breath activated 2 puff INHALATION Q4H PRN (Reason: shortness of breath or wheezing) Qty: 1 0RF Rx Instructions: administer with spacer ketorolac 10 mg tablet 10 mg PO Q6H PRN (Reason: pain) Qty: 14 0RF methocarbamol 500 mg tablet 500 mg PO TID PRN (Reason: as needed for muscle spasm) Qty: 20 0RF lidocaine [Lidoderm] 5 % adhesive patch,medicated 1 patch topical DAILY PRN (Reason: pain) Qty: 15 0RF Rx Instructions: apply to low back as needed hydrocodone-acetaminophen 5-325 mg tablet 1 tab PO BID PRN (Reason: pain) Qty: 14 0RF Visit Report Forms: Patient Portal/API
[2022-07-10] VITALS: BP 121/64; PULSE 84; O2SAT 100
[2022-07-10] MEDS: diazePAM 5 MG TABLET PO (00:16)
[2022-07-10] MEDS: KETOROLAC 30 MG/ML VIAL IM (00:16)
[2022-07-10] MEDS: HYDROCODONE/ACET 5/325 PREPACK 1 BOTTLE MISC (00:48)
[2022-07-10 01:40] VITALS: BP 127/64; PULSE 91; RESP 18; O2SAT 100
== END 2022-07-10 01:40 | disposition home or self-care (01) ==
PROVIDERS: Emergency Provider Emergency Medicine; Family Provider Family Medicine
DX: M54.41 Lumbago with sciatica, right side (principal)
CPT/HCPCS: 93005; 96372; 99283; J1885

== ENCOUNTER → 2023-12-13 10:08 | Outpatient (CLI) | payer OTHER, SELFPAY ==
[2023-12-13 11:54] LABS: Alanine Aminotransferase 27 IU/L (<35); Albumin 3.8 g/dL (3.5-5.0); Albumin Globulin Ratio 1.2 (1.0-2.8); Alkaline Phosphatase 53 U/L (38-126); Aspartate Aminotransferase 37 IU/L (14-36); BUN Creatinine Ratio 22.9 (6-22); Bilirubin Total 0.4 mg/dL (0.2-1.3); Blood Urea Nitrogen 22 mg/dL (7-17); Calcium 9.5 mg/dL (8.4-10.2); Carbon Dioxide 30 mmol/L (22-32); Chloride 106 mmol/L (98-107); Estimated Glomerular Filt Rate > 60 mL/min (>60); Globulin 3.2 g/dL (1.7-4.1); Glucose 154 mg/dL (70-100); HEMOLYSIS < 15 (0-50); Sodium 140 mmol/L (137-145)
[2023-12-13 11:55] LABS: Potassium 5.5 mmol/L (3.4-5.1)
== END ==
LOC: RESP 10:12
PROVIDERS: Family Provider Family Medicine; PCP Nurse Practitioner; Referring Provider Podiatrist; Visit Provider Podiatrist
DX: Z01.818 Encounter for other preprocedural examination (principal); Z01.812 Encounter for preprocedural laboratory examination; R73.9 Hyperglycemia, unspecified
CPT/HCPCS: 36415; 80053; 83036; 93005; 93010